=== PATIENT | male | born 1990 | race African-American/Black ===

== ENCOUNTER 2024-02-02 16:39 | Inpatient (IN) | payer MEDICAID, OTHER ==
[~2024-02-02] VITALS: Ht 188 cm; Wt 74.5 kg
[~2024-02-02 16:39] MED LIST: ALBU18HF12 IH
[2024-02-03] MEDS ORDERED: LORazepam 2 MG TABLET PO PRN (04:30)
[2024-02-03] MEDS ORDERED: HALOPERIDOL 5 MG TABLET PO PRN (04:30)
[2024-02-03] MEDS ORDERED: ZOLPIDEM TARTRATE 10 MG TABLET PO PRN (04:30)
[2024-02-03 04:45] LABS: COVID AG,FIA SOURCE NASAL SWAB
[2024-02-03 05:01] LABS: SARS-COV2 (COVID) ANTIGEN,FIA Negative (Negative)
[2024-02-03] MEDS ORDERED: MAGNESIUM HYDROXIDE SUSPENSION 30 ML UDCUP PO PRN (05:45)
[2024-02-03] MEDS ORDERED: CloNIDine HCL 0.1 MG TABLET PO PRN (05:45)
[2024-02-03] MEDS ORDERED: MAG HYDROX/ALUMINUM HYD/SIMETH ES 30 ML SUSPENSION UDCUP PO PRN (05:45)
[2024-02-03] MEDS ORDERED: PETROLATUM,WHITE 28 GM JELLY TP PRN (05:45)
[2024-02-03] MEDS ORDERED: IBUPROFEN 600 MG TABLET PO PRN (05:45)
[2024-02-03] MEDS ORDERED: ALBUTEROL SULFATE HFA 90 MCG/PUFF 8 GM INHALER IH PRN (05:45)
[2024-02-03] MEDS ORDERED: BENZOCAINE/MENTHOL LOZENGE PO PRN (05:45)
[2024-02-03] MEDS ORDERED: DOCUSATE SODIUM 100 MG CAPSULE PO PRN (05:45)
[2024-02-03] MEDS ORDERED: ONDANSETRON HCL 4 MG TABLET PO PRN (05:45)
[2024-02-03] MEDS ORDERED: LOPERAMIDE HCL 2 MG CAPSULE PO PRN (05:45)
[2024-02-03] MEDS ORDERED: ACETAMINOPHEN 325 MG TABLET PO PRN (05:45)
[2024-02-03] MEDS ORDERED: OMEPRAZOLE 20 MG CAPSULE PO PRN (05:45)
[2024-02-03] MEDS ORDERED: BACITRACIN 28 GM OINTMENT TP PRN (05:45)
[2024-02-03] MEDS: LORazepam 2 MG/ML VIAL IM ONE (06:30)
[2024-02-03] MEDS: HALOPERIDOL LACTATE 5 MG/ML VIAL IM ONE (06:30)
[2024-02-03] MEDS: DiphenhydrAMINE HCL 50 MG/ML VIAL IM ONE (06:30)
[2024-02-03 08:36] LABS: HEMATOCRIT 43.6 % (41-53); HEMOGLOBIN 14.3 g/dL (13.5-17.5); MEAN CORPUSCULAR HEMOGLOBIN 29.2 pg (26.0-34.0); MEAN CORPUSCULAR HGB CONC 32.8 G/dL (31.0-37.0); MEAN CORPUSCULAR VOLUME 89 fL (80-100); PLATELET COUNT (AUTO) 248 K/uL (150-450)
[2024-02-03 08:37] LABS: ANION GAP 7 mmol/L (8-16); CALCIUM, TOTAL 8.7 mg/dL (8.8-10.5); CARBON DIOXIDE 29 mmol/L (22-29); CHLORIDE 103 mmol/L (98-107); CREATININE 1.22 mg/dL (0.60-1.30); GLOMERULAR FILTR. RATE CALC > 60 mL/min (>60); GLUCOSE,RANDOM 96 mg/dL (70-110); POTASSIUM 4.2 mmol/L (3.5-5.1); SODIUM SERUM 139 mmol/L (136-145); UREA NITROGEN, BLOOD 17 mg/dL (7-18)
[2024-02-03 08:43] LABS: BAND NEUTROPHILS % (MANUAL) 0 % (0-5)
[2024-02-03 08:48] LABS: ALANINE AMINOTRANSFERASE 28 U/L (12-78); ALBUMIN 3.7 g/dL (3.4-5.0); ALKALINE PHOSPHATASE 87 U/L (46-116); ASPARTATE AMINOTRANSFERASE 52 U/L (15-37); BILIRUBIN,TOTAL 1.2 mg/dL (0.1-1.0); TOTAL PROTEIN, SERUM 7.4 g/dL (6.4-8.2)
[2024-02-03 09:27] LABS: ALCOHOL, BLOOD (SERUM) < 3 mg/dL (0-10)
[2024-02-03 09:41] LABS: LYMPHOCYTES % (MANUAL) 36 % (22-44); MONOCYTES % (MANUAL) 1 % (2-9); SEGMENTED NEUTROPHILS % 63 % (40-70); TOTAL CELLS COUNTED 100
[2024-02-03 13:20] VITALS: BP 115/67; PULSE 89; RESP 17; TEMP 97.8; O2SAT 99
[2024-02-04 08:43] VITALS: BP 110/65; PULSE 80; RESP 17; TEMP 98.2; O2SAT 98
[2024-02-04] MEDS ORDERED: ESCI-8 PO (10:01)
[2024-02-04] MEDS: ARIPiprazole 5 MG TABLET PO SCH (11:20)
[2024-02-04] MEDS: ESCITALOPRAM OXALATE 10 MG TABLET PO SCH (11:20)
[2024-02-05 02:08] VITALS: BP 116/62; PULSE 82; RESP 18; TEMP 97.8; O2SAT 96
[2024-02-05 09:35] VITALS: RESP 20
[2024-02-05] MEDS: ARIPiprazole 15 MG TABLET PO SCH (15:14)
[2024-02-05 22:10] VITALS: BP 152/61; PULSE 71; RESP 16; TEMP 97.7; O2SAT 97
[2024-02-06 08:19] LABS: CHOL/HDL RATIO 2.6 (4.2-7.3); FREE T4 (FREE THYROXINE) 0.65 ng/dL (0.76-1.46); THYROID STIMULATING HORMONE 0.2 uIU/mL (0.36-3.74)
[2024-02-06 14:12] VITALS: RESP 17
[2024-02-06 20:07] VITALS: BP 109/71; PULSE 90; TEMP 98.2; O2SAT 100
[2024-02-07 09:01] VITALS: BP 122/78; PULSE 73; RESP 17; TEMP 96.8; O2SAT 99
[2024-02-07 20:22] VITALS: BP 105/69; PULSE 75; RESP 18; TEMP 98.4; O2SAT 98
[2024-02-08 08:24] VITALS: BP 106/60; PULSE 69; RESP 18; TEMP 97.8; O2SAT 100
[2024-02-08] MEDS ORDERED: ARIP15TA27 PO (16:21)
[2024-02-08] MEDS ORDERED: NALT50TA33 PO (16:21)
== END 2024-02-08 17:15 | disposition home or self-care (01) | DRG 750 ==
LOC: EMS 16:39 → B2S 02-03 04:33 → UNDOADMIN 02-03 04:33 → B3A 02-03 10:17
PROVIDERS: ADMIT Psychiatry & Neurology Psychiatry; ATTEND Psychiatry & Neurology Psychiatry
PROC: GZHZZZZ Group Psychotherapy (ICD-10-PCS; principal; 2024-02-03)
PROC: GZ51ZZZ Individual Psychotherapy, Behavioral (ICD-10-PCS; 2024-02-08)
DX: F25.1 Schizoaffective disorder, depressive type (principal); R45.851 Suicidal ideations; F32.9 Major depressive disorder, single episode, unspecified; F41.9 Anxiety disorder, unspecified; Z20.822 Contact with and (suspected) exposure to COVID-19; G47.00 Insomnia, unspecified; J45.909 Unspecified asthma, uncomplicated; K59.00 Constipation, unspecified; F10.90 Alcohol use, unspecified, uncomplicated; Z79.899 Other long term (current) drug therapy; Z87.891 Personal history of nicotine dependence
CPT/HCPCS: 80053; 80061; 84439; 84443; 85025; 99285; G0480; J1200; J1630; J2060

== ENCOUNTER 2025-01-21 08:51 | Emergency (ER) | payer MEDICAID, OTHER ==
[~2025-01-21] VITALS: Ht 190.5 cm; Wt 75.0 kg
[~2025-01-21 08:51] MED LIST changes: -ALBU18HF12 IH; +ARIP15TA27 PO; +NALT50TA33 PO
[2025-01-21 09:03] VITALS: TEMP 98.2
[2025-01-21] MEDS: PredniSONE 20 MG TABLET PO ONE (11:39)
[2025-01-21] MEDS: DiphenhydrAMINE HCL 25 MG CAPSULE PO ONE (11:39)
[2025-01-21 13:31] VITALS: BP 111/62; PULSE 66; RESP 18; O2SAT 98
[2025-01-21] MEDS ORDERED: PRED-554 PO (13:35)
[2025-01-21] MEDS ORDERED: DIPH25CA85 PO (13:35)
[2025-01-21] MEDS ORDERED: PERM60CR4 TP (13:56)
== END 2025-01-21 14:06 | disposition home or self-care (01) ==
LOC: EMS 08:51
DX: R21 Rash and other nonspecific skin eruption (principal); J45.909 Unspecified asthma, uncomplicated; F12.90 Cannabis use, unspecified, uncomplicated; F17.210 Nicotine dependence, cigarettes, uncomplicated; Z79.899 Other long term (current) drug therapy; Z72.89 Other problems related to lifestyle
CPT/HCPCS: 99283; J7512